=== PATIENT | female | born 1950 | race Caucasian/White ===

== ENCOUNTER 2017-10-26 08:22 | Emergency (ER) | payer MEDICARE, OTHER ==
[2017-10-26] MEDS: ACETAMINOPHEN 500 MG TAB PO (09:48)
== END 2017-10-26 10:00 | disposition home or self-care (01) ==
LOC: FTE 08:22
DX: J32.9 Chronic sinusitis, unspecified (principal); J00 Acute nasopharyngitis [common cold]; Z87.891 Personal history of nicotine dependence
CPT/HCPCS: 87400; 99284